=== PATIENT | female | born 1945 | race Caucasian/White ===

== ENCOUNTER 2017-03-27 06:08 | Day surgery (SDC) | payer MEDICARE ==
[~2017-03-27] VITALS: Ht 152.4 cm; Wt 70.3 kg
[~2017-03-27 06:08] MED LIST: ABILIFY10 MG PO; AMLODIPINE10 MG PO; BUSPIRONE10 MG PO; FOLIC ACID1 M1 PO; LAMICTAL150 M1 PO; METHOTREXATE IM; PROTONIX40 M2 PO; SULFASALAZINE500 MG PO
[2017-03-27 09:07] VITALS: BP 126/59
== END 2017-03-27 09:15 | disposition home or self-care (01) ==
LOC: ENDO 06:08 → ORM 14:40
PROVIDERS: ATTEND Internal Medicine Gastroenterology
PROC: 0DB58ZX Excision of Esophagus, Via Natural or Artificial Opening Endoscopic, Diagnostic (ICD-10-PCS; principal; 2017-03-27)
PROC: 0D758ZZ Dilation of Esophagus, Via Natural or Artificial Opening Endoscopic (ICD-10-PCS; 2017-03-27)
DX: K22.70 Barrett's esophagus without dysplasia (principal); K20.9 Esophagitis, unspecified; K29.70 Gastritis, unspecified, without bleeding; K44.9 Diaphragmatic hernia without obstruction or gangrene; K29.80 Duodenitis without bleeding; D64.9 Anemia, unspecified; K21.9 Gastro-esophageal reflux disease without esophagitis; K57.30 Diverticulosis of large intestine without perforation or abscess without bleeding; K64.8 Other hemorrhoids; M06.9 Rheumatoid arthritis, unspecified; Q39.9 Congenital malformation of esophagus, unspecified; Z86.010 Personal history of colon polyps